=== PATIENT | male | born 1965 | race Caucasian/White ===

== ENCOUNTER 2020-06-12 07:55 | Outpatient (CLI) | payer OTHER ==
--- NOTE | 2020-06-12 08:35 | RAD ---
KUB: 06/12/2020 COMPARISON: None HISTORY: Urolithiasis FINDINGS: No discrete calcification overlies the expected location of either renal shadow. Kidneys ar e partially obscured by stool/bowel content and bowel gas. There is a nonspecific small calcification in the left hemipelvis just lateral to the left sacral ala measuring 5 mm. This could b e related to a vascular calcification or a stone within the left ureter. IMPRESSION: 5 mm calcification in the left hemipelvis as above. CT may be beneficial if clinically wa rranted.
== END 2020-06-12 07:56 | disposition home or self-care (01) ==
LOC: BICRAD 07:55
PROVIDERS: ATTEND Family Medicine
DX: N20.9 Urinary calculus, unspecified (principal); N28.89 Other specified disorders of kidney and ureter
CPT/HCPCS: 74018